=== PATIENT | female | born 1930 | race Caucasian/White ===

== ENCOUNTER 2020-01-04 14:52 | Inpatient (IN) | payer MEDICARE, OTHER ==
[~2020-01-04] VITALS: Ht 172.7 cm; Wt 76.2 kg
[2020-01-04] MEDS ORDERED: SENN-261 PO (15:31)
[2020-01-04] MEDS ORDERED: METR60GE4 TP (15:31)
[2020-01-04] MEDS ORDERED: ESCI10TA PO (15:31)
[2020-01-04] MEDS ORDERED: DOCU-141 PO (15:31)
[2020-01-04 15:54] VITALS: BP 153/73
[2020-01-04 16:00] VITALS: BP 153/73
[2020-01-04] MEDS ORDERED: LORAZEPAM 1 MG TABLET PO PRN (16:00)
[2020-01-04] MEDS ORDERED: MAGNESIUM HYDROXIDE 30 ML UDC PO PRN (16:00)
[2020-01-04] MEDS ORDERED: MAG HYDROX/AL HYDROX/SIMETH 30 ML UDC PO PRN (16:00)
[2020-01-04] MEDS ORDERED: BLOOD SUGAR DIAGNOSTIC 1 EACH STRIP IN ONE (16:00)
[2020-01-04] MEDS ORDERED: ZOLPIDEM TARTRATE 5 MG TABLET PO PRN (16:00)
--- NOTE | 2020-01-04 18:19 | NUR ---
GPS/RN-ADMISSION NOTES ADMITTED 89 YEARS OLD FEMALE PATIENT FROM [facility] ED.PATIENT WAS ON HOLD FOR SUICIDAL IDEATION PLAN TO CUT WRIST WITH THE KNIFE(DTS). PATIENT WAS BROUGHT IN THE UNIT BY THE SECURITY, AMBULATORY USING CANE. UPON FACE TO FACE ASSESSMENT PATIENT ALERT ORIENTED X3,CALM,COOPERATIVE WITH DEPRESSED MOOD.PATIENT STATED" I DON'T HAVE ANY SUICIDAL THOUGHTS AT THIS TIME. PATIENT CONTRABAND AND FULL BODY ASSESSMENT DONE. PATIENT'S RIGHT BOOKLET AND ADVISEMENT WAS GIVEN TO THE PATIENT.PATIENT WAS ORIENTED IN THE UNIT AND UNIT POLICIES. JOSE J SHELBY ([phone]) MADE AWARE. PATIENT WAS UNDER THE CARE OF DR. RAY ( PSYCHIATRIST) AND DR. WELCH (PMP CERTIFIED PROJECT MANAGER) BOTH MD WAS MADE AWARE OF THE ADMISSION. DR. WELCH, [facility] WAS NOTIFIED TO DO THE MEDICATION RECONCILIATION. WILL ENDORSE TO INCOMING NURSE/SHIFT FOR CONT. MONITORING AND CONTINUITY OF CARE.
[2020-01-04 20:46] VITALS: BP 163/81
[2020-01-04] MEDS ORDERED: hydrALAZINE HCL 25 MG TABLET PO PRN (21:30)
[2020-01-05] MEDS ORDERED: METO25TA4 PO (00:24)
[2020-01-05] MEDS ORDERED: HYDR25SU7 RC (00:27)
[2020-01-05] MEDS ORDERED: ESCI10TA PO (00:29)
[2020-01-05] MEDS ORDERED: PRAV40TA3 PO (00:30)
[2020-01-05] MEDS ORDERED: SACU1TAB7 PO (00:32)
[2020-01-05] MEDS ORDERED: ESTR42.5 VG (00:32)
[2020-01-05] MEDS ORDERED: PHENYLEPHRINE/SHK LV/MO/PET,WH 30 GM TUBE RC PRN (01:00)
[2020-01-05 07:44] LABS: THYROID STIMULATING HORMONE 1.203 uIU/mL (0.358-3.74)
[2020-01-05 08:00] VITALS: BP 132/60
[2020-01-05 08:15] LABS: ALBUMIN 3.2 g/dL (3.4-5.0); BILIRUBIN,TOTAL 0.5 mg/dL (0.2-1.0); CREATININE 0.6 mg/dL (0.6-1.3); TOTAL PROTEIN, SERUM 5.7 g/dL (6.4-8.2)
[2020-01-05] MEDS: DOCUSATE SODIUM 100 MG CAPSULE PO SCH ×2 (08:16→16:59)
[2020-01-05] MEDS: SENNOSIDES 8.6 MG TABLET PO SCH ×2 (08:16→16:59)
[2020-01-05] MEDS: ESCITALOPRAM OXALATE (10 MG) 10 MG TABLET PO SCH (12:47)
[2020-01-05] MEDS ORDERED: HYDROCORTISONE ACETATE 25 MG/SUPP.RECT SUPP.RECT RC SCH (13:00)
[2020-01-05] MEDS ORDERED: TRAZODONE 50 MG TABLET PO PRN (13:00)
[2020-01-05 16:00] VITALS: BP 130/59
[2020-01-05] MEDS ORDERED: ENTRESTO PO SCH (17:00)
[2020-01-05] MEDS: METOPROLOL SUCCINATE 25 MG TAB.SR.24H PO SCH (17:07)
[2020-01-05 20:52] VITALS: BP 152/60
[2020-01-06] MEDS: ACETAMINOPHEN 325 MG TABLET PO PRN ×2 (04:23→20:10)
[2020-01-06 08:00] VITALS: BP 142/71
[2020-01-06] MEDS: SENNOSIDES 8.6 MG TABLET PO SCH ×2 (08:19→16:58)
[2020-01-06] MEDS: DOCUSATE SODIUM 100 MG CAPSULE PO SCH ×2 (08:19→16:58)
[2020-01-06] MEDS: ESCITALOPRAM OXALATE (10 MG) 10 MG TABLET PO SCH (08:19)
[2020-01-06] MEDS: ATORVASTATIN 10 MG TABLET PO SCH (08:46)
--- NOTE | 2020-01-06 09:11 | NUR ---
UR NOTE: Auth: [id number] ELLIOT contacted Case Manger: Bill [phone] and completed concurrent review via voicemail.
[2020-01-06] MEDS ORDERED: BISACODYL SUPP (10 MG) 10 MG/SUPP.RECT SUPP.RECT RC PRN (11:30)
--- NOTE | 2020-01-06 12:25 | NUR ---
UR NOTE: NEW Auth: [id number] SW received a call from Brenden Gonzales ([phone]) stating pt has been approved for 6 days 01/03-01/08 with review due on 01/08. Per Christian, she wants to know on next review if pt has any UTI, abnormals labs, D/C plan, collateral info from daughter, and pts behavior on unit.
--- NOTE | 2020-01-06 14:41 | NUR ---
INITIAL DISCHARGE PLAN: Per pts daughter Zabrina [phone] she wishes for pt to return home [address] [place] [address] with a caregiver. SW will help form a safe and proper discharge in collaboration with .
--- NOTE | 2020-01-06 15:27 | NUR ---
RN NOTE: INFORMED BY PHARMACY ENTRESTO IS NONFORMULARY. PT STATES DAUGHTER CANNOT BRING MEDICATION DUE TO A [address] REQUESTED BY PHARMACY TO NOTIFY DR. GARIBAY. DR. GARIBAY NOTIFIED WITH CURRENT VITAL SIGNS. NO NEW ORDERS AT PRESENT TIME.
[2020-01-06 16:00] VITALS: BP 150/75
--- NOTE | 2020-01-06 16:07 | NUR ---
RN NOTE: PT C/O CONSTIPATION AFTER ROUTINE COLACE AND PRUNE JUICES GIVEN BISACODYL 10MG SUPPOSITORY ADMINISTERED.
[2020-01-06] MEDS: METOPROLOL SUCCINATE 25 MG TAB.SR.24H PO SCH (17:00)
--- NOTE | 2020-01-06 20:14 | NUR ---
RN NOTES : PAIN PT.C/O MILD BACK PAIN REQUESTING FOR TYLENOL , TYENOL 650 MG PO PRN GIVEN PER PT. REQUEST, WILL CONTINUE TO MONITOR.
[2020-01-06 20:25] VITALS: BP 125/77
--- NOTE | 2020-01-06 22:50 | NUR ---
RN NOTES: PT. RESTING IN HER ROOM , NO BEHAVIOR PROBLEMS NOTED, MED COMPLIANT. NO ACUTE DISTRESS NOTED, NO CHANGES NOTED, ALL NEEDS ANTICIPATED, WILL CONTINUITY WITH CARE
--- NOTE | 2020-01-07 06:22 | NUR ---
RN NOTES: PT. RESTING IN HER ROOM , NO ACUTE DISTRESS NOTED, NO CHANGES NOTED, ALL NEEDS ANTICIPATED, WILL CONTINUITY WITH CARE.
[2020-01-07 08:00] VITALS: BP 152/65
[2020-01-07] MEDS: DOCUSATE SODIUM 100 MG CAPSULE PO SCH ×2 (08:41→16:36)
[2020-01-07] MEDS: SENNOSIDES 8.6 MG TABLET PO SCH ×2 (08:41→16:36)
[2020-01-07] MEDS: ATORVASTATIN 10 MG TABLET PO SCH (08:41)
[2020-01-07] MEDS: CALCIUM CITRATE(CITRACAL) /VITAMIN D 1 TAB TABLET PO SCH (08:41)
[2020-01-07] MEDS: ESCITALOPRAM OXALATE (10 MG) 10 MG TABLET PO SCH (08:41)
--- NOTE | 2020-01-07 08:50 | NUR ---
TRANSPORTATION ARRANGEMENT: ELLIOT contacted [facility] ([phone]) and spoke with Rosenda to arrange transportation for pts discharge tomorrow Monday01/08/20. Rosenda ZARATE will receive a call tomorrow with a pharmacy picking technician time.
--- NOTE | 2020-01-07 08:52 | NUR ---
FAMILY CONTACT: ELLIOT contacted pts daughter Zabrina [phone] to inform her of pts discharge for Monday01/08/20. ELLIOT informed her that transportation has been arranged with [facility]. Daughter states that pt will have a caregiver that will be going to pts house 2 times per week and also states that pt will be receiving services with [facility] Address: [address] [place] [address] [address], [place] [address] .
[2020-01-07 16:00] VITALS: BP 139/59
[2020-01-07] MEDS: METOPROLOL SUCCINATE 25 MG TAB.SR.24H PO SCH (17:48)
[2020-01-07 20:31] VITALS: BP 145/58
[2020-01-07] MEDS: ACETAMINOPHEN 325 MG TABLET PO PRN (21:40)
--- NOTE | 2020-01-07 21:40 | NUR ---
GPS RN NOTE: PAIN PT. C/O OF BACK PAIN AND REQUESTED FOR TYLENOL. ADMINISTERED TYLENOL 650 MG PO PRN ORDERED. WILL CONTINUE TO MONITOR FOR SAFETY AND BEHAVIOR.
[2020-01-08 06:16] LABS: BASOPHILS % (AUTO) 0.7 % (0.0-2.0); EOSINOPHILS % (AUTO) 1.9 % (0.0-6.0); HEMATOCRIT 38 % (33-45); HEMOGLOBIN 12.8 g/dL (11.5-14.8); LYMPHOCYTES # (AUTO) 1.5 /CMM (0.8-4.8); LYMPHOCYTES % (AUTO) 30.5 % (20.0-44.0); MEAN CORPUSCULAR HGB CONC 34 g/dl (31.0-36.0); MEAN CORPUSCULAR VOLUME 88 fL (82-100); MONOCYTES # (AUTO) 0.6 /CMM (0.1-1.30); MONOCYTES % (AUTO) 11.2 % (2.0-12.0); NEUTROPHILS # (AUTO) 2.8 /CMM (1.8-8.9); NEUTROPHILS % (AUTO) 55.7 % (43.0-81.0); PLATELET COUNT (AUTO) 249 /CMM (150-450); RED BLOOD CELL COUNT(AUTO) 4.35 MIL/uL (4.0-5.2)
[2020-01-08 06:41] LABS: CALCIUM, SERUM 8.6 mg/dL (8.5-10.1); CREATININE 0.6 mg/dL (0.6-1.3); POTASSIUM 4.3 mmol/L (3.5-5.1)
[2020-01-08 08:00] VITALS: BP 125/63
[2020-01-08] MEDS: ATORVASTATIN 10 MG TABLET PO SCH (08:22)
[2020-01-08] MEDS: ESCITALOPRAM OXALATE (10 MG) 10 MG TABLET PO SCH (08:22)
[2020-01-08] MEDS: SENNOSIDES 8.6 MG TABLET PO SCH (08:22)
[2020-01-08] MEDS: DOCUSATE SODIUM 100 MG CAPSULE PO SCH (08:22)
[2020-01-08] MEDS: CALCIUM CITRATE(CITRACAL) /VITAMIN D 1 TAB TABLET PO SCH (08:27)
--- NOTE | 2020-01-08 08:30 | NUR ---
ELLIOT COORDINATION OF CARE: ELLIOT contacted Clerk [address]: Dr. Sonia Gilman Address: [address] [place] [id number] and scheduled an appointment for pt on Monday01/17/20 at 4:30pm. ELLIOT faxed clinicals to .
--- NOTE | 2020-01-08 09:00 | NUR ---
ELLIOT COORDINATION OF CARE: ELLIOT contacted [facility] Address: [facility] [place] [address] and scheduled a follow up appointment on 01/09/20 at 9:00am.
--- NOTE | 2020-01-08 10:28 | NUR ---
DISCHARGE NOTE: Pt will be discharged between 11:45am - 12:15pm via [facility] home [address] [place] [address]. Pts daughter Zabrina [phone] has been notified and agrees with discharge plan. Daughter states that pt will have a caregiver that will be going to pts house 2 times per week and also states that pt will be receiving services with [facility] Address: [facility], [place] [address] . Pts mood is euthymic woth congruent affect. Pt denies visual/auditory hallucinations and denies suicidal/homicidal ideation. Pt is alert and oriented x4 and is well groomed and dressed. Pt will follow up with [facility] Address: [place] [address] on 01/09/20 at 9:00am and has a follow up appointment with [facility] [employer]atic[employer] Developer: Dr. Sonia Gilman Address: [address] [place] [id number] on Monday01/17/20 at 4:30pm. The multidisciplinary exit care form was done, printed, signed, and given to the patient.
--- NOTE | 2020-01-08 12:15 | NUR ---
GPS/RN-DISCHARGE NOTES RECEIVED DISCHARGE ORDER FROM DR. RAY. DR. EVA WELCH AWARE WITH ORDERS. PATIENT WAS DISCHARGE HOME ,PATIENT DID NOT VERBALIZE SI/HI,DENIES VISUAL/AUDITORY HALLUCINATIONS AT THE TIME OF DISCHARGE. ALL DISCHARGE MEDICATIONS WAS REVIEWED WITH THE PATIENT WITH UNDERSTANDING. PROPERTY MANAGEMENT INTERN INSTRUCTED PATIENT TO GO TO THE NEAREST ER FACILITY IN CASE OF EMERGENCY AND FOLLOW UP WITH PCP IN A WEEK OR NEEDED.RX WAS GIVEN TO THE PATIENT AND ALL DISCHARGE PAPERS. 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 PATIENT LEFT THE UNIT A/OX4 ,NO ACUTE DISTRESS NOTED. ALL BELONGINGS WAS GIVEN BACK TO THE PATIENT INCLUDING ALL OWN MEDICATIONS.MASK WAS OFFERED TO THE PATIENT.PROPERTY MANAGEMENT INTERN CALLED NELSY MORRIS([phone]) AND MADE AWARE OF THE DISCHARGE.
--- NOTE | 2020-01-09 08:32 | NUR ---
UR NOTE: NEW Auth: [id number] SW contacted Brenden Gonzales with [facility] ([phone] ex:[phone]) and completed a discharge clinical via voicemail.
== END 2020-01-08 12:15 | disposition home or self-care (01) | DRG 885 ==
LOC: GPS 14:52
PROVIDERS: ADMIT Psychiatry & Neurology Psychiatry; ATTEND Student in an Organized Health Care Education/Training Program
DX: F32.2 Major depressive disorder, single episode, severe without psychotic features (principal); I11.0 Hypertensive heart disease with heart failure; R45.851 Suicidal ideations; E22.2 Syndrome of inappropriate secretion of antidiuretic hormone; K64.9 Unspecified hemorrhoids; I50.9 Heart failure, unspecified; F43.21 Adjustment disorder with depressed mood; E86.1 Hypovolemia; E78.5 Hyperlipidemia, unspecified
CPT/HCPCS: 36415; 80048-TC; 80053-TC; 80061-TC; 82962-TC; 84443-TC; 85025-TC; 87081-TC